=== PATIENT | male | born 1980 | race Caucasian/White ===

== ENCOUNTER 2022-12-06 10:32 | Emergency (ER) | payer OTHER, SELFPAY ==
--- NOTE | ~2022-12-06 | XR_ITS ---
EXAMINATION: XR foot LT min 3V DATE: 12/06/2022 11:15 INDICATION: Left foot infection. TECHNIQUE: 4 views of left foot were obtained. COMPARISON: None. FINDINGS: Bone alignment is normal. No fracture. Joint spaces are normal. There is an enthesophyte at plantar aspect of calcaneal tuberosity. There is soft tissue swelling near head of fifth metatarsal. IMPRESSION: 1. No evidence of osteomyelitis. Reviewed, dictated and finalized at location A. [employer] MA[employer]GER
[2022-12-06 10:39] VITALS: BP 143/85; PULSE 101; RESP 18; TEMP 36.9; O2SAT 98
[2022-12-06 10:42] LABS: Glucose Point of Care 138 mg/dl (65-105)
--- NOTE | 2022-12-06 10:45 | ED.GENADULT ---
HPI - General Adult General Chief complaint: Wound/Laceration Stated complaint: Left foot/leg pain Time Seen by Provider: 12/06/22 10:40 History of Present Illness HPI narrative: Mata is a 41M with a PMH of diabetes that presented to the ED with a wound on his left foot that has been getting worse throughout the week. He is also getting some pain in his calf from favoring the wound. There have been no fevers, chills, N/V or systemic symptoms. Related Data Home Medications Medication Instructions Recorded Confirmed atorvastatin 20 mg tablet 20 mg PO DAILY 12/06/22 12/06/22 cefuroxime axetil 250 mg tablet 250 mg PO BID 12/06/22 12/06/22 irbesartan 150 1 tablet PO DAILY 12/06/22 12/06/22 mg-hydrochlorothiazide 12.5 mg tablet sertraline 100 mg tablet 100 mg PO DAILY 12/06/22 12/06/22 Allergies Allergy/AdvReac Type Severity Reaction Status Date / Time No Known Allergies Allergy Unverified 12/28/17 08:15 Review of Systems Review of Systems: All systems reviewed & are unremarkable except as noted in HPI and below Exam Const: General: healthy appearing and no acute distress Nutritional Appearance: well nourished Orientation/consciousness: patient oriented x3 HENMT: Head: normal to inspection Ears: external ears normal Eyes: Conjunctivae: conjunctivae normal Neck: Neck: normal visual inspection Chest: Chest palpation & inspection: normal inspection of the chest Resp: Effort & Inspection: normal respiratory effort and not labored Cardio: Rate: regular rate Skin: General skin exam: normal color Neuro: General: patient oriented x3 and moves all extremities Extrem: Other: Left foot had callus under the ball and it had a round 2cm ulcer with some swelling and TTP on the lateral plantar side Psych: Mental Status: mental status grossly normal Course Course Emergency Course: EXAMINATION: XR foot LT min 3V DATE: 12/06/2022 11:15 INDICATION: Left foot infection. TECHNIQUE: 4 views of left foot were obtained. COMPARISON: None. FINDINGS: Bone alignment is normal. No fracture. Joint spaces are normal. There is an enthesophyte at plantar aspect of calcaneal tuberosity. There is soft tissue swelling near head of fifth metatarsal. IMPRESSION: 1. No evidence of osteomyelitis. Labs showed leukocytos and an elevated CRP, c/w diabetic foot wound. D-dimer was normal making a DVT unlikely Vital Signs Vital signs: Vital Signs Temperature 98.4 F 12/06/22 10:39 Pulse Rate 101 H 12/06/22 10:39 Respiratory Rate 18 12/06/22 10:39 Blood Pressure 143/85 H 12/06/22 10:39 Pulse Oximetry 98 12/06/22 10:39 Oxygen Delivery Room Air 12/06/22 10:39 Temperature 98.1 F 12/06/22 12:22 Pulse Rate 101 H 12/06/22 12:22 Respiratory Rate 16 12/06/22 12:22 Blood Pressure 138/93 H 12/06/22 12:22 Pulse Oximetry 97 12/06/22 12:22 Oxygen Delivery Room Air 12/06/22 12:22 Medical Decision Making Vital Signs Vital Signs: Vital Signs Temperature 98.4 F 12/06/22 10:39 Pulse Rate 101 H 12/06/22 10:39 Respiratory Rate 18 12/06/22 10:39 Blood Pressure 143/85 H 12/06/22 10:39 Pulse Oximetry 98 12/06/22 10:39 Oxygen Delivery Room Air 12/06/22 10:39 Temperature 98.1 F 12/06/22 12:22 Pulse Rate 101 H 12/06/22 12:22 Respiratory Rate 16 12/06/22 12:22 Blood Pressure 138/93 H 12/06/22 12:22 Pulse Oximetry 97 12/06/22 12:22 Oxygen Delivery Room Air 12/06/22 12:22 Lab Data 12/06/22 11:25 12/06/22 11:25 Labs: Lab Results 12/06/22 12/06/22 12/06/22 Range/Units 10:40 11:25 11:25 WBC 14.1 H (4.8-10.8) K/mm3 RBC 5.02 (4.70-6.10) M/mm3 Hgb 14.6 (14.0-18.0) g/dL Hct 43.9 (40.0-54.0) % MCV 87.5 (78.0-102.0) fL MCH 29.1 (27.0-31.0) pg MCHC 33.3 (32.0-36.0) g/dL RDW 12.3 (11.6-14.4) % Plt Count 318 (150-420) K/mm3 MPV 10.0 (8.7-11.0) fl Immature Gran % (Auto) 0.6 H (0
[2022-12-06 10:47] VITALS: BP 143/85; PULSE 101; RESP 18; TEMP 36.9; O2SAT 98
[2022-12-06 11:31] LABS: Basophils Absolute Auto 0.05 K/mm3 (0.00-0.10); Basophils Percent Auto 0.4 % (0.0-1.0); Eosinophils Absolute Auto 0.12 K/mm3 (0.02-0.50); Eosinophils Percent Auto 0.9 % (1.0-6.0); Hematocrit 43.9 % (40.0-54.0); Hemoglobin 14.6 g/dL (14.0-18.0); Immature Granulocyte Absolute 0.09 K/mm3 (0.00-0.00); Immature Granulocyte Percent A 0.6 % (0.0-0.0); Lymphocytes Absolute Auto 1.86 K/mm3 (1.10-4.50); Lymphocytes Percent Auto 13.2 % (18.0-42.0); Mean Corpuscular HGB Conc 33.3 g/dL (32.0-36.0); Mean Corpuscular Hemoglobin 29.1 pg (27.0-31.0); Mean Corpuscular Volume 87.5 fL (78.0-102.0); Monocytes Absolute Auto 0.95 K/mm3 (0.10-0.90); Monocytes Percent Auto 6.7 % (2.0-11.0); Neutrophils Percent Auto 78.2 % (50.0-70.0); Platelet Count Result 318 K/mm3 (150-420); Red Blood Count 5.02 M/mm3 (4.70-6.10); Red Cell Distribution Width 12.3 % (11.6-14.4); White Blood Count 14.1 K/mm3 (4.8-10.8)
[2022-12-06 11:43] LABS: D Dimer 0.36 mg/L (0.19-0.50)
[2022-12-06 11:45] LABS: Alanine Aminotransferase 21 U/L (16-63); Alkaline Phosphatase 93 U/L (46-116); Anion Gap 10 mmol/L (8-16); Aspartate Amino Transferase 11 U/L (15-37); Bilirubin,Total 1.3 mg/dL (0.00-1.00); Blood Urea Nitrogen 12 mg/dL (7-18); Calcium 9.3 mg/dL (8.5-10.1); Carbon Dioxide 27 mmol/L (21-32); Chloride 100 mmol/L (98-108); Estimated CRCL calculation 131 ml/min; Estimated Glomerular Filt Rate > 60; Glucose 144 mg/dL (70-99); Osmolality Calculated 286 mOsm/kg (285-295); Potassium 4.1 mmol/L (3.5-5.1); Sodium 137 mmol/L (136-145)
[2022-12-06] MEDS: CLINDAMYCIN HCL 150 MG CAP 450 MG PO (11:52)
[2022-12-06 12:02] LABS: CRP 12.3 mg/dL (0.0-0.9)
[2022-12-06 12:10] LABS: Hemoglobin A1C 6.9 % (<5.7)
[2022-12-06 12:22] VITALS: BP 138/93; PULSE 101; RESP 16; TEMP 36.7; O2SAT 97
--- NOTE | 2022-12-08 13:13 | PC.NURSE ---
preliminary left foot wound culture report reviewed. Group B Strep isolated. pt prescribed clindamycin at discharge. call made to lab to request a final susceptibility report be completed. awaiting final report
--- NOTE | 2022-12-11 12:43 | PC.NURSE ---
[facility] for x7[facility] per dr gallegos. pt called and notified. voiced understanding
== END 2022-12-06 12:23 | disposition home or self-care (01) ==
PROVIDERS: Emergency Provider Family Medicine; PCP Internal Medicine
DX: E11.621 Type 2 diabetes mellitus with foot ulcer (principal); L97.529 Non-pressure chronic ulcer of other part of left foot with unspecified severity
CPT/HCPCS: 36415; 73630; 80053; 82948; 83036; 85025; 85380; 86140; 87070; 87147; 87186; 87205; 99283; A9270

== ENCOUNTER → 2022-12-30 07:43 | Outpatient (CLI) | payer OTHER, SELFPAY ==
--- NOTE | ~2022-12-30 | MR_ITS ---
MRI of the left foot CLINICAL HISTORY: Chronic ulcer TECHNIQUE: Sagittal T1-weighted and STIR images, axial T1-weighted, T2 fat sat, and T1 fat-sat images , and coronal T1-weighted and proton-density fat-sat images were performed. Following intravenous adm inistration of 20 cc MultiHance gadolinium, T1-weighted fat-sat imaging was performed in the axial, c oronal, and sagittal planes. FINDINGS: There is destructive change with hypointense T1 marrow signal and marrow edema involving th e fifth metatarsal head and shaft, consistent with osteomyelitis. Suspected associated fracture throu gh the distal fifth metatarsal neck is well. Remaining osseous structures demonstrate normal marrow s ignals. There is mild degenerative change of the first metatarsophalangeal joint. Probable small join t effusion at the fifth MTP joint. There is apparent soft tissue ulcer subjacent to the fifth metatarsal head of the plantar aspect of t he foot. There is enhancing soft tissue degenerative change at the fifth MTP joint region, with proba ble microabscesses laterally measuring approximately 6 mm in diameter. There is diffuse edema of the plantar musculature of the foot. There is mild dorsal subcutaneous soft tissue edema. Plantar fascia is intact. Flexor and extensor tendons appear intact. IMPRESSION: Osteomyelitis of the fifth metatarsal head, probably involving the fifth metatarsal shaft as well. Suspected superimposed fracture through the distal fifth metatarsal neck. Surrounding soft tissue infection about the fifth MTP joint region, with microabscess, as detailed ab ove. Small fifth MTP joint effusion. Focal plantar ulcer at the fifth metatarsal head region. Nonspecific myositis the plantar musculature of the foot. Reviewed, dictated and finalized at location . IMPRESSION: Osteomyelitis of the fifth metatarsal head, probably involving the fifth metata rsal shaft as well. Suspected superimposed fracture through the distal fifth metatarsal neck. Surrounding soft tissue infection about the fifth MTP joint region, with microa bscess, as detailed above. Small fifth MTP joint effusion. Focal plantar ulcer at the fifth metatarsal head region. Nonspecific myositis the plantar musculature of the foot.
--- NOTE | ~2022-12-30 | MR_ITS ---
MRI of the right foot CLINICAL HISTORY: Chronic ulcer TECHNIQUE: Sagittal T1-weighted and STIR images, axial T1-weighted, T2 fat sat, and T1 fat-sat images , and coronal T1-weighted and proton-density fat-sat images were acquired. Following intravenous admi nistration of 20 cc MultiHance gadolinium, T1-weighted fat-sat imaging was performed in the axial, co sophy, and sagittal planes. FINDINGS: There is minimal amorphous marrow edema in the fifth metatarsal head and shaft. T1 marrow s ignal is preserved. Remaining osseous structures demonstrate normal marrow signal. There is moderate degenerative change at the first metatarsophalangeal joint. No significant joint effusion identified. There is edematous change of the plantar musculature foot, especially at the lateral aspect of the fo refoot. Probable minimal enhancement and soft tissues about the fifth MTP joint region. No abscess ev ident. Flexor and extensor tendons are intact. Visualized plantar fascia is intact. IMPRESSION: Nonspecific soft tissue edema and enhancement in the soft tissues about the fifth MTP joint region. C orrelate for soft tissue infection. No abscess. Probable mild reactive marrow edema/stress response of the fifth metatarsal. No definite evidence for osteomyelitis. Nonspecific myositis of the lateral, plantar musculature of the foot. Reviewed, dictated and finalized at location . IMPRESSION: Nonspecific soft tissue edema and enhancement in the soft tissues about the fif th MTP joint region. Correlate for soft tissue infection. No abscess. Probable mild reactive marrow edema/stress response of the fifth metatarsal. No definite evidence for osteomyelitis. Nonspecific myositis of the lateral, plantar musculature of the foot.
== END ==
PROVIDERS: Visit Provider Podiatrist Foot & Ankle Surgery
DX: L97.512 Non-pressure chronic ulcer of other part of right foot with fat layer exposed (principal); L97.522 Non-pressure chronic ulcer of other part of left foot with fat layer exposed; L03.115 Cellulitis of right lower limb; L03.116 Cellulitis of left lower limb; M60.9 Myositis, unspecified; R60.9 Edema, unspecified; M86.9 Osteomyelitis, unspecified; M25.475 Effusion, left foot
CPT/HCPCS: 73720; A9577